=== PATIENT | male | born 1965 | race American Indian/Alaskan Native ===

== ENCOUNTER 2016-04-13 11:08 | Outpatient (CLI) | payer MEDICAID ==
--- NOTE | 2016-04-13 12:47 | XRay Report ---
RIGHT SHOULDER THREE VIEWS: 04/13/16 11:08:00 CLINICAL: Right shoulder pain. FINDINGS: Normal glenohumeral alignment. Normal AC joint. No fracture or dislocation. No bone lesion. Normal soft tissues. IMPRESSION: Normal study.
--- NOTE | 2016-04-13 12:47 | XRay Report ---
CERVICAL SPINE THREE VIEWS: 04/13/16 11:08:00 CLINICAL: Pain FINDINGS: Normal vertebral body height, alignment and disk spaces through C7. The C7 body is not entirely imaged on the lateral view. Large anterior osteophytes with preservation of the disc spaces at C5-6 and C6-7. Normal odontoid and C1. IMPRESSION: Moderate degenerative disc disease at C5-6 and C6-7.
== END 2016-04-13 11:09 | disposition home or self-care (01) ==
LOC: SPVIMAG 11:08
DX: M50.323 Other cervical disc degeneration at C6-C7 level (principal); M25.78 Osteophyte, vertebrae
CPT/HCPCS: 72040